=== PATIENT | male | born 1965 | race Caucasian/White ===

== ENCOUNTER → 2017-08-24 | Outpatient (CLI) | payer OTHER ==
[2015-10-06 17:45] VITALS: BP 109/75
[~2017-08-24] MED LIST: DOCU-109 PO; HYDR-2758 PO; INDO75CA3 PO; ONDA4TAB10 SL; VARE1TAB21 PO
--- NOTE | 2017-08-24 16:35 | RAD ---
MR of the right elbow Indication: Pain after injury Monday. [place] a pop. Biceps tear. Technique: Standard multiplanar sequences are obtained. Findings: Anterior: Complete rupture of the biceps tendon with 6 cm proximal retraction. Intramuscular strain of the distal biceps muscle. Fluid and hemorrhage occupies the gap left by the retracted muscle and tendon. The brachialis tendon is intact. . Posterior: The triceps tendon and insertion are intact. Medial: Common flexor tendon and ulnar collateral ligament are intact. Lateral: Mild thickening and signal of the common extensor tendon, compatible with tendinosis. The proximal radial collateral ligament and lateral ulnar collateral ligament are intact. Fluid: Trace joint fluid. 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 Mild subchondral marrow edema and cysts at the capitellum. Bones: No acute fracture or aggressive bone destruction. Soft tissues: Subcutaneous edema and swelling around the elbow. Ulnar nerve: Unremarkable Impression: 1. Complete biceps tendon rupture with 6 cm proximal retraction. 2. Mild common extensor tendinosis. 3. Primary osteoarthritis. Electronically signed by: Apollo Lincoln MD (08/24/2017 4:32 PM) [id number]
== END | disposition home or self-care (01) ==
LOC: MRI 14:54
PROVIDERS: ATTEND Orthopaedic Surgery Sports Medicine
DX: S46.211A Strain of muscle, fascia and tendon of other parts of biceps, right arm, initial encounter (principal); M19.021 Primary osteoarthritis, right elbow; X58.XXXA Exposure to other specified factors, initial encounter; Y93.89 Activity, other specified; Y92.89 Other specified places as the place of occurrence of the external cause; Y99.8 Other external cause status
CPT/HCPCS: 73221

== ENCOUNTER 2017-08-30 08:12 | Day surgery (SDC) | payer OTHER ==
[~2017-08-30] VITALS: Ht 170.2 cm; Wt 72.1 kg
[~2017-08-30 08:12] MED LIST changes: -DOCU-109 PO; +HYDROmorphone 2 MG/ML VIAL IV PRN; -INDO75CA3 PO; +IV RINGERS,LACTATED 1000ML 1,000 ML IV SCH; +LIDOCAINE 1% PF 2 ML VIAL. ID PRN; +MORPHINE SULFATE 4 MG/ML DISP.SYRIN. IV PRN; -ONDA4TAB10 SL; +ONDANSETRON PF 4 MG/2 ML VIAL. IV PRN; +PROCHLORPERAZINE 10 MG/2 ML VIAL. IV PRN; +fentaNYL PF VIAL 100 MCG/2 ML VIAL IV PRN
--- NOTE | 2017-08-30 08:49 | DISCH ---
DISCHARGE INSTRUCTIONS Condition on Discharge Condition on Discharge: Stable Activity After Discharge Activity Instructions for Disc: Other, see below Other activity instructions: leave splint in place Bathing Instructions: Shower-keep dressing dry Weight Bearing Status after Di: Non weight bearing Diet after Discharge Diet after Discharge: Regular Wound Incision Care Wound/Incision Care: Ice to area for comfort, Keep wound/cast CDI, Keep wound elevated, Do not change dressing Contacting the DR. after DC Call your doctor for: Concerns you may have Follow-Up Follow up with: [facility] in 2wks TERE CAMARENA II, MD Aug 30, 2017 08:49
[2017-08-30] MEDS ORDERED: MIDAZOLAM HCL/PF 2 MG/2 ML VIAL. ONE (09:53)
[2017-08-30] MEDS ORDERED: fentaNYL PF VIAL 250 MCG/5 ML VIAL ONE (09:53)
--- NOTE | 2017-08-30 09:55 | PDOC4 ---
Operative Note Operative Note Date of procedure: 08/30/2017 Surgeon: Matthew Blankenship.: Ciarra Andujar Anesthesia: General Preoperative diagnosis: Right distal biceps rupture Postoperative diagnosis: Same Procedure performed: Open right distal biceps repair Components inserted: Lima and nephew Endobutton Tourniquet time: see Anes Blood loss: 25mL Complications: none Findings: Complete distal biceps rupture Reason for procedure: Fei is a very pleasant 52-year-old [id number] gentleman who tripped and fell and suffered an eccentric-type injury to his right elbow. He had immediate pain and difficulty moving his elbow. Clinical exam and MRI reviewed consistent with the above preoperative diagnosis and we had a discussion of the risks benefits alternatives and he elected to proceed. Description of procedure: Patient was greeted in the preoperative area by myself for the correct extremity was marked and verified. He was taken back to the operative suite and his antibiotics were started and row. Once in the OR he was transferred gently supine to the or table and secured to the bed with all pressure points padded. He then underwent successful induction of a general anesthetic and we proceeded to taped in place a nonsterile tourniquet at his right upper arm. We then proceeded to prep and drape right upper extremity are usual sterile fashion conductor standard preoperative timeout. I then I then made an incision over his distal at tibial fossa through a crease in his skin and dissected subcutaneous tissues tissue with tenotomies and used bipolar cautery to cauterize bleeders. I incised fashion line with the skin incision. I then digitally dissected up until I palpated the biceps tendon and delivered it into the operative field and clamped it with a now was clamped. I then used a # 2 Cobraid 2 in a running whipstitch fashion through the Endobutton and through the tendon. I made sure that I left enough room distally to flip the Endobutton. I then carefully dissected down to his radial tuberosity and after identifying the extent of his proximal radius I advanced the Beath pin. I then used C-arm to confirm this position. I then placed a metal graft sizer and uses to protect the soft tissues. I then advanced the Beath pin through skin, used the Endobutton reamer, and then I used a 7 mm acorn reamer through the anterior cortex. I then thoroughly irrigated out the operative field and taking care to ensure had removed all loose bony debris. After this, I threaded the Endobutton sutures through the Beath pin and pulled them out the posterior forearm. I then pulled the Endobutton through and flipped it. I confirmed this with good toggle. His biceps had talked nicely. I then irrigated out the operative field again and let tourniquet down. There was some bleeders that I cauterized with bipolar cautery. After this I closed subcutaneous tissue with inverted interrupted 2-0 Vicryl followed by running 4-0 Monocryl in a subcuticular fashion for skin. The. Incisional area was then infiltrated with approximately 10 mL of local anesthetic mixture. We then placed Steri-Strips Xeroform gauze and sterile cast padding and then fashioned a posterior splint at about 60. He tolerated surgery well. Prior to accomplishing wound closure all culture reports correct 2. No competitions. Postoperative plan is to leaving the splint for 2 weeks. He'll be nonweightbearing for 6 weeks. I'll see him back in 2 weeks, sooner should a problem arise. He is to be discharged on Indocin. MATTHEW CAMARENA II, MD Aug 30, 2017 09:55
[2017-08-30] MEDS ORDERED: BUPIVACAINE 0.5% 50 ML VIAL. ONE (10:21)
[2017-08-30] MEDS ORDERED: LIDOCAINE 1% 20 ML VIAL. ONE (10:22)
[2017-08-30] MEDS ORDERED: ONDANSETRON PF 4 MG/2 ML VIAL. ONE (10:34)
[2017-08-30] MEDS ORDERED: KETOROLAC 30 MG/ML INJ FOR OR. INJ ONE (10:34)
[2017-08-30] MEDS ORDERED: PROPOFOL 20 ML IV ONE (10:34)
[2017-08-30] MEDS ORDERED: DEXAMETHASONE SOD PHOS 20 MG/5 ML VIAL. ONE (10:34)
[2017-08-30] MEDS ORDERED: LIDOCAINE 2% PF Vial for OR 5 ML VIAL. ONE (10:34)
[2017-08-30] MEDS ORDERED: SEVOFLURANE 61 TO 120 MINUTES. IH ONE (11:40)
[2017-08-30] MEDS ORDERED: LIDOCAINE 1% PF 30 ML VIAL. INJ ONE (11:40)
[2017-08-30] MEDS ORDERED: BUPIVACAINE MPF 0.5% 30 ML VIAL. IJ ONE (11:41)
[2017-08-30] MEDS ORDERED: INDO75CA3 PO (11:55)
[2017-08-30] MEDS ORDERED: DOCU-109 PO (11:57)
[2017-08-30] MEDS ORDERED: ONDA4TAB10 SL (11:58)
[2017-08-30] MEDS ORDERED: oxyCODONE/APAP 5/325 1 TAB TABLET PO ONE (12:30)
[2017-08-30] MEDS: fentaNYL PF VIAL 100 MCG/2 ML VIAL IV PRN ×2 (12:53→13:07)
[2017-08-30 13:37] VITALS: BP 123/74
== END 2017-08-30 13:37 | disposition home or self-care (01) ==
LOC: SURG 08:12
PROVIDERS: ATTEND Orthopaedic Surgery Sports Medicine
DX: S46.211A Strain of muscle, fascia and tendon of other parts of biceps, right arm, initial encounter (principal); W01.0XXA Fall on same level from slipping, tripping and stumbling without subsequent striking against object, initial encounter; Y93.89 Activity, other specified; Y92.89 Other specified places as the place of occurrence of the external cause; Y99.8 Other external cause status
CPT/HCPCS: 24341; 76000; C1713; J0690; J0780; J1100; J1885; J2250; J2405; J2704; J3010; J3490; J7120; J2001